=== PATIENT | female | born 1995 | race Caucasian/White ===

== ENCOUNTER 2017-06-19 12:35 | Emergency (ER) | payer OTHER ==
--- NOTE | 2017-06-19 13:17 | EDM.PDOC ---
ED HPI GENERAL MEDICAL PROBLEM - General Chief Complaint: Lower Extremity Injury/Pain Stated Complaint: Right ankle pain Time Seen by Provider: 06/19/17 13:00 Source of Information: Reports: Patient, RN Notes Reviewed History Limitations: Reports: No Limitations - History of Present Illness INITIAL COMMENTS - FREE TEXT/NARRATIVE: 21 year old female presents to the ED with complaints of right ankle pain and swelling. She reports "twisting" her ankle last evening while dancing. She says the pain was mild last evening. When she awoke this morning the pain was more severe. She is able to bear weight and ambulate but it is painful. She has no pain the foot or toes. Her pain is isolated to her medial and lateral malleolous. She says the pain is equal on each side. No numbness or tingling. No previous injury. 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 Treatments MEDIA/INSTRUCTIONAL DESIGNER: Reports: Other (see below) Other Treatments MEDIA/INSTRUCTIONAL DESIGNER: ice Right Ankle Pain Score (Numeric/FACES): 3 - Related Data Allergies Allergy/AdvReac Type Severity Reaction Status Date / Time amoxicillin Allergy Other Verified 06/19/17 12:52 Home Meds: Home Meds Aluminum Chloride [Drysol] 1 dose TOP DAILY 06/19/17 [History] Past Medical History - Past Health History Medical/Surgical History: Denies Medical/Surgical History - Past Surgical History Other HEENT Surgeries/Procedures: wisdom teeth Social & Family History - Tobacco Use Smoking Status *Q: Never Smoker - Caffeine Use Caffeine Use: Reports: Coffee - Recreational Drug Use Recreational Drug Use: No Review of Systems - Review of Systems Review Of Systems: See Below Musculoskeletal: Reports: Joint Pain, Joint Swelling Skin: Reports: No Symptoms Neurological: Reports: No Symptoms. Denies: Numbness, Tingling ED EXAM, GENERAL - Physical Exam Exam: See Below Exam Limited By: No Limitations General Appearance: Alert, WD/WN, No Apparent Distress Extremities: Other (mild swelling to right ankle. She has mild bony point tenderness to bilateral malleolous. Ankle joint is stable. CMS intact. Patient was able to ambulate into the ED with normal gait. ) Neurological: Alert, Oriented, Normal Cognition Skin Exam: Warm, Dry, Intact Course - Vital Signs Last Recorded V/S: Last Vital Signs Temp 98.2 F 06/19/17 12:54 Pulse 94 06/19/17 12:54 Resp 16 06/19/17 12:54 BP 139/88 06/19/17 12:54 Pulse Ox 100 06/19/17 12:54 - Orders/Labs/Meds Orders: Active Orders 24 hr Category Date Time Status Ankle Min 3V Rt [CR] Stat Exams 06/19/17 13:16 Ordered - Re-Assessments/Exams Free Text/Narrative Re-Assessment/Exam: Right ankle x-rays are negative for fracture. Will place in ankle brace and discharge with supportive care. Educated on return precautions and f/u instructions. Departure - Departure Time of Disposition: 13:45 Disposition: Home, Self-Care 01 Condition: Good Clinical Impression: Sprain of ankle, right Qualifiers: Encounter type: initial encounter Involved ligament of ankle: unspecified ligament Qualified Code(s): S93.401A - Sprain of unspecified ligament of right ankle, initial encounter - Discharge Information Instructions: Ankle Sprain, [id number] Referrals: PCP,None [Primary Care Provider] - Forms: ED Department Discharge Additional Instructions: Rest, ice and elevate Tylenol or Ibuprofen as needed for pain Wear ankle brace as tolerated Follow-up with orthopedic surgeon if not significantly improved in 7-[address] Ortzi's office at [phone] to schedule if needed - My Orders Last 24 Hours: My Active Orders 06/19/17 13:16 Ankle Min 3V Rt [CR] Stat - Assessment/Plan Last 24 Hours: My Active Orders 06/19/17 13:16 Ankle Min 3V Rt [CR] Stat
--- NOTE | 2017-06-20 07:16 | CR ---
Right ankle: Four views of the right ankle were obtained. Comparison: No prior study. Ankle mortise is symmetric. Soft tissue swelling is seen. No acute fracture, dislocation or other bony abnormality is seen. Impression: 1. Soft tissue swelling. No acute bony abnormality is identified on right ankle exam. Diagnostic code #2
== END 2017-06-19 14:00 | disposition home or self-care (01) ==
LOC: JD.ED 12:35
DX: S93.401A Sprain of unspecified ligament of right ankle, initial encounter (principal); Z88.1 Allergy status to other antibiotic agents; Z79.899 Other long term (current) drug therapy; X50.1XXA Overexertion from prolonged static or awkward postures, initial encounter; Y93.41 Activity, dancing
CPT/HCPCS: 73610-26-RT; 73610-RT; 99283